=== PATIENT | female | born 1975 | race Caucasian/White ===

== ENCOUNTER → 2024-06-17 09:17 | Outpatient (REF) | payer BC, SELFPAY | LOC: HWRCS 09:17 | PROVIDERS: ATTENDING PHYSICIAN Internal Medicine Cardiovascular Disease | DX: R01.1 Cardiac murmur, unspecified (principal) | CPT/HCPCS: 93306 ==

== ENCOUNTER → 2024-07-26 13:01 | Outpatient (REF) | payer BC, SELFPAY | LOC: HWRAD 13:01 | PROVIDERS: ATTENDING PHYSICIAN Internal Medicine Endocrinology, Diabetes & Metabolism | DX: E04.2 Nontoxic multinodular goiter (principal) | CPT/HCPCS: 76536 ==

== ENCOUNTER 2025-06-23 07:52 | Emergency (ER) | payer BC, SELFPAY ==
[2025-06-23 07:59] VITALS: BP 129/77
--- NOTE | 2025-06-23 08:16 | ED.GENMED ---
History of Present Illness
General
Chief Complaint: Headache
Source: patient
Exam Limitations: none
Time Seen by Provider: 06/23/25 08:07
Nursing documentation reviewed up to this point in time: agreed with
History of Present Illness
History of Present Illness:
50-year-old female with history of ulcerative colitis on mesalamine who presents to the emergency department for evaluation of headache. Patient reports onset of symptoms rather abruptly at 1:30 AM and have been constant since that time. She
reports a frontal headache that radiates around the left side of her head and towards the neck. Worse with movement. Denies any alleviating factors. She reports associated nausea and a few episodes of vomiting. She reports no fever but some
subjective chills. Reports mild photophobia. She denies any eye pain or visual aura. She denies any weakness or numbness in the extremities. She denies any recent illness�says she was in her normal state of health last night. She denies any
recent trauma to the head. She says she is not someone who typically gets headaches and that the symptoms are very unusual for her.
Review of Systems
Review of Systems
All Other Systems: ROS reviewed and negative except as documented in HPI and ROS
Constitutional: Reports chills; Denies fever
EENT: Denies sore throat
Respiratory: Denies trouble breathing
Cardiac: Denies chest pain
ABD/GI: Reports nausea and vomiting; Denies abdominal pain or diarrhea
: Denies flank pain
Musculoskeletal: Denies neck pain or back pain
Neurological: Reports headache; Denies dizzy, weakness or numbness
Phy Exam
Physical Exam
Physical Exam:
General: Awake, alert, oriented x3; no acute distress�patient is resting comfortably in bed and nontoxic appearing
Head: Normocephalic, atraumatic
Eyes: Conjunctiva normal, EOMI, pupils equal round reactive to light bilaterally
Throat: Airway intact, handling secretions
Neck: Trachea midline, supple without meningismus�full range of motion of the neck without nuchal rigidity
Lungs: Breathing comfortably not in distress
Heart: Regular rate
Abd: Soft, non distended, nontender
Neuro: Cranial nerves are intact 2 through 12, speech fluent no dysarthria or aphasia, no limb ataxia, motor and sensory intact in all extremities
Skin: No rash noted
Extremities: Warm and well-perfused
Scores
Heart Failure Risk
Heart Failure Risk Score: Not Applicable
Heart Score for Chest Pain Patients
STEMI patient?: Not applicable
Withdrawal Assessment of Alcohol
Withdrawal Assessment Completed?: Not applicable
Course
Orders/Labs/Results
Orders:
Orders
06/23/25 08:13
CT Head & Neck Angio W/wo IV Urgent
Comment:
Reason For Exam: acute onset new headache
0.9% Sodium Chloride 1000 ml [Nss] 1,000 ml IV BOLUS
Test Result ONCE
06/23/25 08:21
COVID-19 Antigen Urgent
Source: Nasal Swab
Comprehensive Metabolic Panel Urgent
HCG, Serum Qualitative Screen Urgent
Influenza A+B Rapid Molecular Urgent
SARA Source: Nasal Swab
Specimen Description:
06/23/25 08:22
Complete Blood Count/With Diff Urgent
06/23/25 08:25
Ketorolac [Toradol] 15 mg IV NOW STA
Abnormal Lab Results
06/23/25
08:22
RBC 3.97 L 10^6/uL
(4.20-5.40)
MCH 31.5 H pg
(27.0-31.0)
Absolute Neuts (auto) 6.6 H 10^3/uL
(1.4-6.5)
Absolute Lymphs (auto) 0.9 L 10^3/uL
(1.2-3.4)
Neutrophils % 82.8 H %
(42.2-75.2)
Lymphocytes % 11.1 L %
(20.5-51.1)
06/23/25 08:22
06/23/25 08:21
Vital Signs
Initial and Last Documented VS:
Initial Vital Signs
Temp Pulse Resp BP Pulse Ox
36.5 C 82 20 129/77 100
06/23/25 07:59 06/23/25 07:59 06/23/25 07:59 06/23/25 07:59 06/23/25 07:59
Last Documented Vital Signs
Temp Pulse Resp BP Pulse Ox
36.5 C 82 16 129/77 100
06/23/25 07:59 06/23/25 08:15 06/23/25 08:15 06/23/25 07:59 06/23/25 08:20
MDM/Problems Addressed
Differential Diagnosis Includes:
Tension headache, migraine headache, brain bleed (including subarachnoid hemorrhage), meningitis, viral syndrome
MDM/Problems Addressed:
50-year-old female presents for evaluation of headache as described above. Started overnight and has been constant�she says that symptoms are unusual for her. Vital signs are normal, exam as above� she appears generally well despite complaining of
severe headache. Will plan to place an IV and check labs including a CBC and a CMP, hCG. Will check CTA head and neck with abrupt onset of new intense headache. Will swab for COVID and flu. Treat symptomatically. At this point although she does
complain of some mild neck pain and photophobia if she reports rather acute onset is afebrile without objective meningeal signs and generally very well-appearing; clinical suspicion for meningitis is low. Reassess after the above.
Labs reviewed: CBC no clinically significant abnormalities, CMP within acceptable range. hCG negative. COVID and flu swabs negative. Awaiting imaging.
CTA head and neck showed no acute abnormalities�multiple incidental findings noted, CT report printed and provided to patient for outpatient follow-up. Patient feeling better after Toradol and fluids here in the emergency room. She notes her son
had sore throat yesterday when it this may be a viral syndrome. Certainly clinically she has no signs to suggest that this is meningitis or other emergent pathology requiring lumbar puncture. Think she is stable for discharge can continue with
Tylenol, Motrin, fluids over the next few days. Follow-up with primary care physician. Patient feels comfortable with this plan. We spoke about return precautions in detail and all questions answered.
*Radiology
Radiology exam reviewed: radiology read reviewed
*Pulse Oximetry
SaO2: 100
Oxygen Mode of Delivery: Room air
Patient hypoxic: no (100%)
*Critical Care Note
Total Time (30-74mins, 75-104mins- exclusive of procedures): Not Applicable
Data Reviewed
Source: patient, records and ambulance crew
ED Attending Note
-
Portions of this chart may have been created with voice recognition software.� Occasional wrong word or��sound alike� substitutions may have occurred due to the inherent limitations of voice recognition software.
Discharge Plan
Departure
Referrals:
Alice Dove MD [Family Provider, Internal Medicine]
Interventions
Interventions:
*Risk Screen - Suicide Last Done: 06/23/25 07:59
*General Assessment Last Done: 06/23/25 07:59
*Neglect/Abuse Screening Last Done: 06/23/25 07:59
ED- Neurological Assessment Last Done: 06/23/25 09:00
Discharge Date and Time
Print Language: OCCITAN
[2025-06-23 08:20] VITALS: BMI 26.6
[2025-06-23] MEDS: NSS 1000 IV (08:26)
[2025-06-23] MEDS: TORADOL 15 MG IV (08:31)
[2025-06-23 08:39] LABS: Hematocrit 37.3 % (37.0-47.0); Hemoglobin 12.5 g/dL (12.0-16.0); Mean Corp Hgb Conc. 33.5 g/dL (33.0-37.0); Mean Corpuscular Volume 94.0 fL (81.0-99.0); Nucleated Red Blood Cells % 0 %; Platelet Count 236 10^3/uL (130-400); Red Cell Dist. Width 11.9 % (11.5-14.5)
[2025-06-23 09:00] VITALS: BP 121/60
[2025-06-23 09:00] LABS: COVID-19 Antigen Negative (Negative)
[2025-06-23 09:07] LABS: HCG, Serum Qualitative Screen Negative
[2025-06-23 09:12] LABS: ALT (SGPT) 22 U/L (0-35); AST (SGOT) 24 U/L (14-36); Albumin 4.2 g/dl (3.5-5.0); Alkaline Phosphatase 47 U/L (38-126); Blood Urea Nitrogen 11 mg/dl (7-17); Calcium 8.7 mg/dl (8.4-10.2); Carbon Dioxide 25 mmol/L (22-30); Chloride 106 mmol/L (98-107); Estimated Creatinine Clearance 93 ml/min; Glucose 93 mg/dl (70-99); Potassium 4.3 mmol/L (3.5-5.1); Sodium 137 mmol/L (135-145); Total Protein 6.8 g/dl (6.3-8.2); eGFR > 60.00
== END 2025-06-23 11:05 | disposition home or self-care (01) ==
LOC: EMR 07:52
PROVIDERS: EMERGENCY PHYSICIAN Emergency Medicine; FAMILY PHYSICIAN Internal Medicine
DX: R51.9 Headache, unspecified (principal); K51.90 Ulcerative colitis, unspecified, without complications
CPT/HCPCS: 99284; 70496; 70498; 80053; 84703; 85025; 87502; 87811; Q9967